=== PATIENT | male | born 1990 | race Caucasian/White ===

== ENCOUNTER 2024-01-15 22:39 | Emergency (ER) | payer SELFPAY ==
[2024-01-15 22:40] VITALS: BP 183/105; PULSE 105; RESP 16; TEMP 36.8; O2SAT 95; BMI 43.6
--- NOTE | 2024-01-15 22:45 | ED.VIS.CHEST ---
HPI History of Present Illness Chief Complaint: Chest Pain PFSH PFSH Home Medications NK 01/16/24 [History Last Taken Unknown] Allergy/AdvReac Type Severity Reaction Status Date / Time No Known Allergies Allergy Verified 01/15/24 22:42 Social History Smoking Status: Former smoker EXAM Physical Exam Const Vital Signs: 01/15/24 22:40 01/15/24 22:56 01/15/24 23:15 Temperature 98.2 F Temperature Source Temporal Pulse Rate 105 H 115 H Respiratory Rate 16 35 H Blood Pressure 183/105 H 124/110 H Blood Pressure Mean 131 116 Pulse Ox 95 96 93 Oxygen Delivery Method Room Air Room Air 01/16/24 00:00 01/16/24 00:15 01/16/24 01:00 Temperature Temperature Source Pulse Rate 89 88 90 Respiratory Rate 15 12 14 Blood Pressure 136/92 H Blood Pressure Mean 104 Pulse Ox 94 94 96 Oxygen Delivery Method Heart Score History: Slightly/Non-Suspicious ECG: Normal Age: </= 45 years Risk Factors: No Risk Factors Troponin: </= Normal Limit Score: 0 MDM MDM MDM Narrative Medical decision making narrative: HISTORY OF PRESENT ILLNESS: 33-year-old M presents with chest pain. Notes 3 weeks of intermittent pain. States is worse with deep breath. Notes he recently stopped smoking. Patient denies sudden onset of pain, no tearing sensation, no migratory symptoms, no new numbness, weakness or loss of sensation. Patient denies family history or personal history of Marfan syndrome or Puneet-Danlos. The patient denies recent surgery in the last 4 weeks or immobilization in the last 3 days, denies previous diagnosis of DVT or PE, hemoptysis, unilateral leg swelling or malignancy with treatment the last 6 months. No estrogen use noted. REVIEW OF SYSTEMS: All other systems reviewed and are negative except as noted in the history of present illness. At least 10 review of systems reviewed and are negative except as noted in history of present illness. PHYSICAL EXAM: Nursing triage notes reviewed, Vital signs reviewed Constitutional: please see mdm HENT: MMM Eyes: Pupils equal round and reactive to light, Extraocular muscles intact Neck: No stridor, no JVD, full neck ROM Lungs: Clear to auscultation, No wheezing or rales. No increased work of breathing, no conversational dyspnea, no accessory muscle use, no nasal flaring. No respiratory distress noted Heart: Regular rate and rhythm, No murmurs, No rubs and No gallops, 2+ distal pulses (radial, femoral, posterior tibial) in all extremities Abdomen: Soft, there is no tenderness, rigidity, rebound or guarding, no obvious peritoneal signs, no palpable pulsatile abdominal masses, no auscultated abdominal bruit : No CVAT Extremities: No edema Neuro: No focal neurological deficits, cranial nerves II through XII intact, 5/5 strength in all extremities. Intact sensation to light touch in all extremities, 2+ reflexes bilateral patella tendons. Normal gait. No ataxia. Skin: No rash or lesions noted MEDICAL DECISION MAKING: Chief Complaint: Chest pain External records reviewed: No recent cardiac catheterizations, stress test or echocardiograms noted in the chart Factors affecting care: Obesity Social determinants of health: Tobacco use History obtained from others: None Consults: none [facility] Narrative: Patient is initially hypertensive, tachycardic otherwise afebrile nontoxic-appearing. Lungs are clear although limited by body habitus. I considered the following differential diagnosis: ACS, arrhythmia, anemia, electrolyte abnormality, pneumonia, pneumothorax, GI etiology, PE I obtained a broad lab and imaging workup to further elucidate the etiology patient complaints. ALL IMAGES (IF OBTAINED) HAVE BEEN PERSONALLY REVIEWED AND INTERPRETED BY MYSELF. EKG sinus tachycardia, normal axis, no intervals, no STEMI, no evidence of WW, ARVD or Brugada syndrome High-sensitivity troponin is negative, no evidence of myocardial ischemia D-dimer negative making VTE less likely CBC without leukocytosis, severe anemia, no thrombocytopenia. BMP without evidence of significant electrolyte abnormalities, no anion gap, no acute kidney injury. I have personally reviewed the patient's chest x-ray. Chest x-ray is unremarkable for pulmonary edema, pneumothorax, pneumonia or focal cardiopulmonary abnormality. PE less likely given low risk Wells score, negative d-dimer. Aortic dissection is thought to be less likely given no sudden ripping or tearing pain, migratory pain, palpable pulse inequalities, no focal neurologic deficits concurrent with chest pain. Chance of dissection less than 11/1999. Pericarditis less likely given no pathognomonic EKG changes (no diffuse ST elevations, SD depressions). GI etiology (i.e. Boerhaave syndrome) less likely given no chest or neck crepitus, no vomiting or forced retching. I completed a HEART Score to screen for Major Adverse Cardiac Event (MACE) in this patient. The evidence indicates that the patient is very low risk for MACE and this is consistent with my clinical intuition. The risk of further workup or hospitalization for MACE is likely higher than the risk of the patient having a MACE. It is, therefore, in the patient?s best interest not to do additional emergent testing or to be hospitalized for MACE at this time. Shared Decision-Making No hospitalization indicated I have discussed with the patient my clinical impression and the result of the HEART Score to screen for MACE, as well as the risks of further testing and hospitalization. The HEART Score shows that the risk for MACE is less than 1%. Although the risk of MACE has not been completely eliminated, the risks of further testing or hospitalization for MACE likely exceed any potential benefit, and the patient agrees with not pursuing further emergent evaluation or hospitalization for MACE at this time. The patient and/or family, caregivers express understanding. The patient and/or family, caregivers agrees with the plan. Total critical care time today provided was at least 0 minutes. This excludes separately billable procedures. Critical care time (if documented) is secondary to the patient having high probability of clinically significant/life threatening deterioration in the patient's condition which required my urgent intervention. Vinicio Novoa, DO Lab Data Labs: Laboratory Results - last 24 hr 01/15/24 01/16/24 22:53 01:05 WBC 9.9 RBC 5.76 Hgb 16.2 Hct 48.3 MCV 83.9 MCH 28.1 MCHC 33.5 RDW Std Deviation 42.2 RDW Coeff of Willie 13.9 Plt Count 332 MPV 9.6 Immature Gran % (Auto) 0.700 Neut % (Auto) 66.7 Lymph % (Auto) 24.2 [place] % (Auto) 7.1 Eos % (Auto) 0.8 Baso % (Auto) 0.5 Absolute Neuts (auto) 6.6 Absolute Lymphs (auto) 2.40 Nucleated RBC % 0 D-Dimer Quant (PE/DVT) < 0.27 L Sodium 137 Potassium 3.8 Chloride 103 Carbon Dioxide 25.0 Anion Gap 9 BUN 13 Creatinine 0.90 Estim Creat Clear Calc 156.62 Est GFR (MDRD) Af Amer 126 Est GFR (MDRD) Non-Af 104 BUN/Creatinine Ratio 14.4 Glucose 105 Calcium 9.2 Troponin I High Sens 5 4 Radiography Diagnostic Testing: Clinical Impression(s) from Imaging Studies Chest X-Ray 01/15/24 23:00 IMPRESSION: No evidence of acute cardiopulmonary disease. Electronically Signed: Kian Coats DO at 23:33 EDT , Discharge Plan Triage Chief Complaint: Chest Pain ED Provider: Vinicio Novoa Dx/Rx/DC Orders Instructions: ED Chest Pain, Uncertain Cause Prescriptions: No Action NK Primary Care Provider: Care Physician,No Primary Referrals: Birgit Dennison MD [Med Staff - Teaching Associate] - Care Physician,No Primary [Primary Care Provider] - Activity Restrictions/Additional Instructions: Thank you for trusting us with your care today! Please take Tylenol (2 pills, 650 mg), ibuprofen (2 pills, 400 mg) every 6 hours as needed for pain and fever control. Please start taking daily aspirin. Please return to the emergency department if your symptoms change or worsen. Please follow with your primary care physician for further outpatient evaluation and management. Disposition Disposition: Home, Self Care
--- NOTE | 2024-01-15 22:50 | EKG12_ITS ---
Test Reason : CP Blood Pressure : / mmHG Vent. Rate : 101 BPM Atrial Rate : 101 BPM P-R Int : 140 ms QRS Dur : 086 ms QT Int : 338 ms P-R-T Axes : 029 031 045 degrees QTc Int : 438 ms Sinus tachycardia Otherwise normal ECG Confirmed by Jason Pan ([id number]), market editor ALIS SAMPSON ([id number]) on 01/17/2024 7:15:51 AM Referred By: TA Confirmed By:Jason Pan
[2024-01-15 22:56] VITALS: O2SAT 96
[2024-01-15 22:59] LABS: Absolute Neutrophil Count 6.6 X10^3/uL (2.0-7.7); Basophil# 0.05 X10^3/uL; Basophil% 0.5 % (0-1); Eosinophil# 0.08 X10^3/uL; Eosinophils% 0.8 % (0-5); Hematocrit 48.3 % (40-54); Hemoglobin 16.2 g/dL (13.0-16.5); Lymphocyte % 24.2 % (19-41); Mean Corp Hgb Conc 33.5 g/dL (32-36); Mean Corpuscular Hgb 28.1 pg (27.0-32.0); Mean Corpuscular Volume 83.9 fL (80-94); Mean Platelet Vol. 9.6 fl (6.2-12.0); Monocyte% 7.1 % (0-10); NRBC Flagged by Analyzer 0 % (0-5); Neutrophil # 6.62 X10^3/uL (2.7-7.7); Neutrophil % 66.7 % (47-70); Platelet Count 332 K/mm3 (150-450); RBC Distribution Width CV 13.9 % (11.6-14.6); RBC Distribution Width SD 42.2 fl (35.1-43.9); Red Blood Count 5.76 M/mm3 (4.6-6.2); White Blood Count 9.9 K/mm3 (4.4-11.0)
--- NOTE | 2024-01-15 23:00 | RAD_ITS ---
INDICATION: chest pain EXAMINATION/TECHNIQUE: X-RAY - XR Chest 1 View COMPARISON: None. FINDINGS: LINES/DEVICES: None. LUNGS: No consolidation or evidence of an effusion. No evidence of edema or a pneumothorax. Scarring versus atelectasis in the left lung base. MEDIASTINUM AND CARDIOVASCULAR STRUCTURES: Cardiac silhouette is normal in size and contour. Mediastinum is unremarkable. BONES AND SOFT TISSUES: No acute abnormality. RAD/Chest 1 View (Portable) IMPRESSION: No evidence of acute cardiopulmonary disease. Electronically Signed: Kian Coats DO at 23:33 EDT ,
[2024-01-15 23:14] LABS: D-Dimer Quantitative (DVT/PE) < 0.27 FEU/ug/m (0.27-0.49)
[2024-01-15 23:15] VITALS: BP 124/110; PULSE 115; RESP 35; O2SAT 93
[2024-01-15 23:19] LABS: Anion Gap 9 (5-15); BUN 13 mg/dL (7-18); BUN/Creat Ratio 14.4 RATIO (10-20); Calcium,Total 9.2 mg/dL (8.5-10.1); Chloride 103 mmol/L (98-107); EST Glomerular Filtration Rate 104 mL/min (>60); Est Glom Filt Rate - Afr Amer 126 mL/min (>60); Estimated Creatinine Clearance 156.62 ml/min; Glucose 105 mg/dL (74-106); Potassium 3.8 mmol/L (3.5-5.1); Sodium Level 137 mmol/L (136-145); Troponin-I HS (w/2H Reflex) 5 pg/mL (3.0-78.0)
[2024-01-15] MEDS: Aspirin 325 MG Tablet PO (23:20)
--- OUTSIDE RECORDS SUMMARY | 2024-01-15 23:20 | XMS RPT_ITS | CCD ---
Author Name Unknown Address [address] [place] [address] Organization [facility] Results Test Name Value Interpretation Reference Range Facil ity Summary Purpose Family History No Family History Records Found Advance Directives No Advanced Directives Records Found Additional Source Comments (unrecognized sect ion and content) No Status Records Found INFORMATION SOURCE (unrecogn ized section and content) FOR RECORDS PERTAINING TO PATIENTS WHO ARE OR HAVE BEEN ENROLLED IN A CHEMICAL DEPENDENCY/SUBSTANCEABUSE PROGRAM, SOME INFORMATION MAY BE OMITTED. This clinical summary was aggregated from multiple sources. Caution should be exercised in using it in the provision of clinical care. This summary normalizes information from multiple sources, and as a consequence, information in this document may materially change the coding, format and clinical context of patient data. In addition, data may be omitted in some cases. CLINICAL DECISIONS SHOULD BE BASED ON THE PRIMARY CLINICAL RECORDS. [facility]. provides no warranty or guarantee of the accuracy or completeness of information in this document.
[2024-01-15] MEDS: 0.9% Normal Saline (1000mL) 1,000 ML 999 ML IV (23:21)
[2024-01-16] VITALS: PULSE 89; RESP 15; O2SAT 94
[2024-01-16 00:15] VITALS: BP 136/92; PULSE 88; RESP 12; O2SAT 94
[2024-01-16 00:56] LABS: Reflex Troponin-HS? (from REC) Y
[2024-01-16 01:00] VITALS: PULSE 90; RESP 14; O2SAT 96
[2024-01-16 01:28] LABS: Troponin-I HS 4 pg/mL (3.0-78.0)
[2024-01-16 01:46] VITALS: BP 136/87; PULSE 87; RESP 18; TEMP 36.9; O2SAT 99
== END 2024-01-16 01:46 | disposition home or self-care (01) ==
PROVIDERS: Emergency Provider Emergency Medicine; Visit Provider Emergency Medicine
DX: R07.9 Chest pain, unspecified (principal); Z87.891 Personal history of nicotine dependence; E66.9 Obesity, unspecified
CPT/HCPCS: 71045; 80048; 84484; 85025; 85379; 93005; 96360; 99284; J7030; A4216

== ENCOUNTER 2024-09-20 09:40 | Emergency (ER) | payer SELFPAY ==
[2024-09-20] VITALS (8 sets, daily range): BP systolic 116–197; BP diastolic 73–111; PULSE 77–135; RESP 14–19; TEMP 36.3–36.7; O2SAT 97–100; BMI 46.1
--- NOTE | 2024-09-20 10:30 | EKG12_ITS ---
Test Reason : CP Blood Pressure : */* mmHG Vent. Rate : 122 BPM Atrial Rate : 122 BPM P-R Int : 154 ms QRS Dur : 86 ms QT Int : 310 ms P-R-T Axes : 36 27 52 degrees QTcB Int : 441 ms Sinus tachycardia Otherwise normal ECG Confirmed by CHELSEY CONCEPCION, ED ([id number]), film or videotape editor ALIS SAMPSON ([id number]) on 09/25/2024 7:47:20 AM Referred By: SERAFIN Confirmed By: ED BARBOSA MD
--- NOTE | 2024-09-20 10:50 | RAD_ITS ---
EXAM: XR CHEST, 2 VIEWS CLINICAL INDICATION: chest pain TECHNIQUE: Frontal and lateral views of the chest. COMPARISON: 01/15/2024. FINDINGS: LUNGS AND PLEURAL SPACES: Unremarkable. No consolidation or edema. No pneumothorax. No effusion. HEART: Unremarkable. Cardiac silhouette not enlarged. MEDIASTINUM: Central airways and mediastinal contour are unremarkable. BONES/JOINTS: Unremarkable. No acute fracture. SOFT TISSUES: Unremarkable. RAD/Chest PA and Lateral IMPRESSION: No radiographic evidence of acute cardiopulmonary disease and no significant interval change when compared to 01/15/2024. Electronically Signed: Babak Espinoza MD at 11:18 EST ,
--- NOTE | 2024-09-20 10:50 | ED.VIS.CHEST ---
HPI History of Present Illness Chief Complaint: Chest Pain Informant: patient Narrative Narrative: Patient is a 34-year-old male denies any significant past medical history presenting with chest pain and left arm pain. Triage notes that he had chest pain left arm pain for 2 days but he tells me infection going on for a week. He notes that chest pain has been mild and intermittent. When he does get it states it feels like a tightness more so on the left side of his chest. He gets discomfort in his left arm which feels almost like his muscles are constantly flexed. He denies any shortness of breath or difficulty breathing. Does he just generally has not feel well and his father brought him in today because he did not eat breakfast which is quite unusual for him. Patient had a similar episode in December recent that time the chest pain was worse. Symptoms resolved he never followed up. Is not regularly see a primary care doctor. Does have a strong family history of hypertension and heart disease. Denies any swelling of his legs, history of DVT or PE. [place] any recent travel or immobilization. [place] associate nausea or vomiting or GI symptoms. Has not take anything for symptoms prior to arrival. No other complaints or concerns reported at this time [facility] Medical History Benign skin lesion Home Medications ?Medication ?Instructions ?Recorded ?Last Taken ?Type NK 01/16/24 Unknown History Allergy/AdvReac Type Severity Reaction Status Date / Time No Known Allergies Allergy Verified 09/20/24 09:40 Surgical History History of tonsillectomy and adenoidectomy Social History household members: family housing: house current occupational status: unemployed Smoking Status: Current some day smoker tobacco type: cigarettes ROS ROS ED Constitutional Constitutional ED: Denies chills or fever(s) ENT ENT ED: Denies ear pain, rhinorrhea or sore throat Cardiovascular Cardiovascular: Reports as per HPI and chest pain Respiratory/Chest Respiratory/Chest: Reports dyspnea; Denies cough Gastrointestinal Gastrointestinal: Denies abdominal pain, diarrhea, melena, nausea or vomiting Musculoskeletal Musculoskeletal: Reports other Details: left arm discomfort ; Denies arthralgias or myalgias Integumentary Denies rash Neurologic Neurologic: Reports headache(s); Denies paresthesias or weakness Psychiatric Psychiatric: Denies anxiety Hematologic/Lymphatic Hematologic/Lymphatic: Denies easy bleeding or easy bruising EXAM Physical Exam Const Vital Signs: 09/20/24 09:40 09/20/24 10:17 09/20/24 10:30 Temperature 98.0 F Temperature Source Oral Pulse Rate 135 H Respiratory Rate 18 Respiratory Effort Normal Non-Labored Blood Pressure 197/111 H Blood Pressure Mean 139 Pulse Ox 98 99 Oxygen Delivery Method Room Air Room Air 09/20/24 10:45 09/20/24 11:00 09/20/24 12:00 Temperature Temperature Source Pulse Rate 100 110 H 103 H Respiratory Rate 18 18 14 Respiratory Effort Blood Pressure 157/97 H 150/102 H 140/88 H Blood Pressure Mean 117 118 105 Pulse Ox 98 98 98 Oxygen Delivery Method Room Air 09/20/24 13:00 09/20/24 14:00 Temperature Temperature Source Pulse Rate 93 77 Respiratory Rate 16 19 H Respiratory Effort Blood Pressure 143/89 H 124/75 H Blood Pressure Mean 107 91 Pulse Ox 100 97 Oxygen Delivery Method Room Air Room Air Positive well nourished and well developed General Appearance ED: well developed and NAD HEENT Reports moist mucous membranes Eyes PERRL Neck supple and no JVD Chest Wall inspection of chest normal and palpation of chest normal Resp normal respiratory effort and clear to auscultation bilaterally Cardio no murmurs Rate: tachycardic Peripheral Pulses: radial pulses present GI normal to inspection, nondistended, normoactive bowel sounds, soft to palpation and non-tender Extremity normal to inspection General Extremety ED: Negative for edema General Extremity: Negative for edema Neuro oriented x3 Sensorium / Orientation: awake and alert Motor Exam: Negative for general weakness Psych mental status grossly normal Skin no rashes or lesions noted and no wounds Heart Score History: Slightly/Non-Suspicious ECG: Normal Age: </= 45 years Risk Factors: 1 or 2 Risk Factors Troponin: </= Normal Limit Score: 1 MDM MDM MDM Narrative Medical decision making narrative: Patient is evaluated for chest pain. Vital signs notable for hypertension tachycardia. Otherwise quite well-appearing. Will obtain cardiac workup including D-dimer and TSH. Differential includes ACS, pericarditis, myocarditis, pneumonia, pulmonary emboli, pleural effusion, muscle skeletal pain and thyroid dysfunction. Chart review shows the patient was seen for very similar presentation on 01/15/2024. He essentially had a negative workup with no obvious source and was discharged home. Cardiac workup largely normal. CBC, D-dimer, CMP, delta high sensitive troponin and TSH as well as lipase are all normal. Two-view chest x-ray viewed by myself as well as radiology does not show any acute process. While in the ER patient's heart rate and blood pressure normalized without any further intervention. He did receive a dose of aspirin. The exact cause of symptoms is not clear but given his negative workup, normal vital signs I do feel that he is a good candidate for outpatient follow-up. Father does go on to state that that patient's grandfather just admitted to the ICU at [facility] yesterday so this could be a new stressor as well. Patient be given outpatient referral for primary care as well as cardiology. Given return precautions. Discharged home in stable condition. History & Record Review Additional record(s) reviewed:: Prior ED visit Lab Data Attestation: I reviewed the patient's lab results. Labs: Laboratory Results - last 24 hr 09/20/24 09/20/24 10:42 13:02 WBC 9.4 RBC 5.42 Hgb 15.4 Hct 45.1 MCV 83.2 MCH 28.4 MCHC 34.1 RDW Std Deviation 42.3 RDW Coeff of Willie 14.1 Plt Count 314 MPV 9.5 Immature Gran % (Auto) 0.500 Neut % (Auto) 75.0 H Lymph % (Auto) 17.0 L [place] % (Auto) 6.0 Eos % (Auto) 1.1 Baso % (Auto) 0.4 Absolute Neuts (auto) 7.0 Absolute Lymphs (auto) 1.60 Nucleated RBC % 0 D-Dimer Quant (PE/DVT) 0.27 Sodium 135 L Potassium 4.1 Chloride 104 Carbon Dioxide 29.0 Anion Gap 2 L BUN 11 Creatinine 1.02 Estim Creat Clear Calc 141.35 Est GFR (MDRD) Af Amer 109 Est GFR (MDRD) Non-Af 90 BUN/Creatinine Ratio 10.8 Glucose 132 H Calcium 8.8 Total Bilirubin 0.60 AST 16 ALT 34 Alkaline Phosphatase 64 Troponin I High Sens < 3 L 3 Total Protein 7.5 Albumin 3.5 Globulin 4.0 Albumin/Globulin Ratio 0.9 Lipase 18 TSH 1.310 Radiography Diagnostic Testing: Clinical Impression(s) from Imaging Studies Chest X-Ray 09/20/24 10:50 IMPRESSION: No radiographic evidence of acute cardiopulmonary disease and no significant interval change when compared to 01/15/2024. Electronically Signed: Babak Espinoza MD at 11:18 EST Reading Location ID and State: [address] [place] [address] , Service support , Rhythm Strip Rhythm Strip: Sinus Tach Rate: 122 Ectopy: None EKG Initial EKG: Attestation: I personally reviewed and interpreted this EKG as follows: Interpretation: Sinus Tachycardia Comments: Sinus tachycardia rate 122 bpm Normal axis Normal intervals Normal ST segments Prior EKG tracings: available for review Prior: Unchanged Discharge Plan Triage Chief Complaint: Chest Pain ED Provider: Shannan Sheikh Dx/Rx/DC Orders Clinical Impression: Chest pain, Tachycardia, Elevated BP without diagnosis of hypertension Instructions: ED Chest Pain, Uncertain Cause Prescriptions: No Action NK Primary Care Provider: Darius Hinojosa Referrals: Darius Hinojosa DO [Primary Care Provider] - Jason Pan MD [Med Staff - Active Staff] - As soon as possible Activity Restrictions/Additional Instructions: Your workup was largely normal and reassuring. It could like you could take an 81 mg aspirin daily. Please follow-up with primary care doctor as well as cardiology. Print Language: Urdu Disposition Disposition: Home, Self Care
[2024-09-20 11:02] LABS: Basophil# 0.04 X10^3/uL; Basophil% 0.4 % (0-1); Eosinophils% 1.1 % (0-5); Hematocrit 45.1 % (40-54); Hemoglobin 15.4 g/dL (13.0-16.5); Mean Corp Hgb Conc 34.1 g/dL (32-36); Mean Corpuscular Hgb 28.4 pg (27.0-32.0); Mean Corpuscular Volume 83.2 fL (80-94); Mean Platelet Vol. 9.5 fl (6.2-12.0); Monocyte# 0.56 X10^3/uL; NRBC Flagged by Analyzer 0 % (0-5); Neutrophil # 7.04 X10^3/uL (2.7-7.7); Platelet Count 314 K/mm3 (150-450); RBC Distribution Width CV 14.1 % (11.6-14.6); RBC Distribution Width SD 42.3 fl (35.1-43.9); Red Blood Count 5.42 M/mm3 (4.6-6.2); White Blood Count 9.4 K/mm3 (4.4-11.0)
[2024-09-20 11:24] LABS: ALB/GLOB Ratio 0.9 RATIO (0.9-2.4); AST(SGOT) 16 U/L (15-37); Alanine Aminotransfer ALT/SGPT 34 U/L (16-61); Albumin, Serum 3.5 g/dL (3.2-5.0); Alkaline Phosphatase 64 U/L (45-117); Anion Gap 2 (5-15); BUN 11 mg/dL (7-18); BUN/Creat Ratio 10.8 RATIO (10-20); Calcium,Total 8.8 mg/dL (8.5-10.1); Chloride 104 mmol/L (98-107); Creatinine, Serum 1.02 mg/dL (0.70-1.30); D-Dimer Quantitative (DVT/PE) 0.27 FEU/ug/m (0.27-0.49); EST Glomerular Filtration Rate 90 mL/min (>60); Est Glom Filt Rate - Afr Amer 109 mL/min (>60); Estimated Creatinine Clearance 141.35 ml/min; Glucose 132 mg/dL (74-106); Lipase 18 U/L (13-75); Potassium 4.1 mmol/L (3.5-5.1); Protein, Total 7.5 g/dL (6.4-8.2); Sodium Level 135 mmol/L (136-145); Troponin-I HS (w/2H Reflex) < 3 pg/mL (3.0-78.0)
[2024-09-20] MEDS: Aspirin 81 MG TAB.CHEW 324 MG PO (11:52)
[2024-09-20 12:50] LABS: Reflex Troponin-HS? (from REC) Y
[2024-09-20 13:38] LABS: Troponin-I HS 3 pg/mL (3.0-78.0)
== END 2024-09-20 15:38 | disposition home or self-care (01) ==
PROVIDERS: Emergency Provider Emergency Medicine; PCP Family Medicine; Visit Provider Emergency Medicine
DX: R07.89 Other chest pain (principal); R00.0 Tachycardia, unspecified; R03.0 Elevated blood-pressure reading, without diagnosis of hypertension; M79.602 Pain in left arm; Z82.49 Family history of ischemic heart disease and other diseases of the circulatory system; F17.210 Nicotine dependence, cigarettes, uncomplicated
CPT/HCPCS: 71046; 80053; 83690; 84443; 84484; 85025; 85379; 93005; 99284; A4216